=== PATIENT | male | born 1980 ===

== ENCOUNTER 2021-01-05 20:00 | Inpatient (IN) | payer SELFPAY ==
[2021-01-05 20:00] VITALS: BMI 25.1
[2021-01-05 20:52] VITALS: BP 112/70; PULSE 101; RESP 24; TEMP 36.8; O2SAT 96
[2021-01-05 22:00] VITALS: BP 112/70; PULSE 98; RESP 19; TEMP 36.8; O2SAT 96
[2021-01-05] MEDS: ondansetron 4 MG Tablet PO (22:42)
[2021-01-05] MEDS: hyDROXYzine 25 mg Capsule 50 MG PO (22:42)
[2021-01-05] MEDS: trazodone 50 mg Tablet PO (22:42)
--- NOTE | 2021-01-05 22:42 | PC.NURSE ---
Zofran 4mg given for nausea, Trazodone 50mg given for sleep, Visteril 50 mg given for anxiety
--- NOTE | 2021-01-05 22:45 | PC.NURSE ---
4mg Zofran PO given for severe n/V.
[2021-01-06] MEDS: ondansetron 4 MG Tablet PO (02:31)
--- NOTE | 2021-01-06 03:35 | PC.NURSE ---
4mg Zofran given for severe N/V; dry heaves.
[2021-01-06] MEDS: promethazine 25 mg/mL SDV 1 mL IM (05:12)
--- NOTE | 2021-01-06 05:15 | PC.NURSE ---
MD notified of ineffectiveness of Zofran PO. Order for Phenagran 25mg IM obtained. medication given in left deltoid. Will continue to moniter.
--- NOTE | 2021-01-06 05:35 | PC.NURSE ---
40/m SI direct admit from [facility] after suicide attempt to overdose and strangulation efforts via bed sheet. pt is depressed and he is physically ill. pt has vomited and had dry heaves all evening. physician notified, home meds started.
[2021-01-06 05:59] VITALS: BP 139/88; PULSE 103; RESP 24; TEMP 37; O2SAT 98
--- NOTE | 2021-01-06 09:05 | P.HP_ITS ---
Providers/Chief Complaint Admitting Physician: Nils Hinds MD Chief Complaint: depression HPI NPU History of Present Illness Donovan Faulkner is a 40 year old male who presented to the outside hospital [facility] to a Tylenol overdose which required hospitalization and treatment. After his medical clearance he was transferred to [facility] and ultimately admitted to the neuropsychiatric unit for evaluation and treatment of the circumstances surrounding the overdose. He presents today struggling with a likely acute gastritis secondary to the trauma from the overdose and treatment thereof. Struggling with the interview secondary to significant emesis and really feeling physically poor. The report in the 96-hour hold is that the patient reported going down in [place] [employer] [place] and grabbing pills in taking them. When he was confronted by his base remover he continued to say that he just wanted to . In the hospital he reportedly has evaluated in the unit including trying to wrap cord around his neck. Today he presents saying that he must have been suicidal since early suggesting lack of recollection of the minds that he was in when he executed these behaviors both in the hospital and in the grocery store. The assessment in the ICU was that his presentation was consistent with methamphetamine intoxication and his drug screen was positive for methamphetamine. There is also concern that his mental status was reflecting Benadryl intoxication as well as he reportedly took Tylenol PM on top of required and receiving Acetadote he did require Haldol and Ativan to manage his agitation. He presents today as a limited historian secondary to his gastritis and feeling really sick but he does muscular the wherewithal to query whether he can get my Xanax restarted. We discussed restarting medications based on verifiable dosing from reliable sources and that we have thus far not identified Xanax as a medication that is part of his normal regimen. Further more accurate history of addiction and mental health were not obtainable given his current presentation. We will continue to work to obtain more history as he is able to participate more in the interview. Meds NPU Home Medications Medication Instructions Recorded Confirmed Last Taken Type DuoNeb 0.5 - 2.5 mg CONTINUOUS 01/06/21 01/06/21 01/05/21 16:00 History NEBULIZATION Q4-5H PRN Pulmicort 0.25 mg CONTINUOUS INHALATION BID 01/06/21 01/06/21 Unknown History Seroquel 100 mg PO BID 01/06/21 01/06/21 Unknown History Seroquel 200 mg PO BEDTIME 01/06/21 01/06/21 Unknown History doxepin 10 mg PO BEDTIME 01/06/21 01/06/21 Unknown History formoterol fumarate 20 mcg NEBULIZER BID 01/06/21 01/06/21 Unknown History gabapentin 800 mg PO TID 01/06/21 01/06/21 Unknown History levetiracetam [Keppra] 500 mg PO BID 01/06/21 01/06/21 Unknown History paroxetine HCl [Paxil] 20 mg PO DAILY 01/06/21 01/06/21 Unknown History Allergies Allergy/AdvReac Type Severity Reaction Status Date / Time haloperidol [From Haldol] Allergy ALGY-Difficulty Verified 01/05/21 20:51 Swallowing Mental Status Exam MSE Comments: This is a well-nourished well-developed white male in hospital scrubs with limited grooming and eye contact. No abnormal movements except for psychomotor agitation. Semicooperative with exam and moderate to extreme distress. Speech was limited and normal rate and volume. Mood described as shitty, affect congruent. Thought process linear and organized, thought content: Patient denied homicidal ideation but just that he had suicidal ideation, there are no delusions reported or noted, he denied auditory or visual hallucinations. Attention and concentration were limited memory was unreliable but never formally tested. He is alert and oriented times person and place. Insight and judgment are impaired, impulse control is impaired. Vitals/I&O/Wt Last Vital Signs Temp 98.6 F 01/06/21 05:59 Pulse 103 H 01/06/21 05:59 Resp 24 H 01/06/21 05:59 BP 139/88 01/06/21 05:59 Pulse Ox 98 01/06/21 05:59 Weight last 48 hrs Weight 77.111 kg Weight 77.111 kg A&P Assessment and plan (1) Methamphetamine dependence: Status: Acute (2) Tylenol overdose: Status: Acute (3) Suicide attempt by acetaminophen overdose: Status: Acute (4) Altered mental status: Status: Acute Additional A&P Information This is a 40-year-old white male with a long history of addiction with recent suicide attempt by Tylenol overdose as well as active methamphetamine use which likely contributed to the suicide attempt who presents as a fairly poor historian. 1. Continue current medication. 2. Continue every 15 minute checks for safety. 3. Encourage individual, group and milieu therapies. 4. Encourage sober living treatment after discharge at the highest level of care to which he is willing to commit. 5. We will attempt to gain collateral information to get a better sense of how we can help him. Involuntary Hold Information 96 Hour Hold: 96 Hour Involuntary Admission: Yes 96 Hour Hold Ending Date: 01/11/21 96 Hour Hold Ending Time: 20:00 Attestations NPU Medical Necessity Statement*: Inpatient hospitalization is medically necessary and the clinically appropriate intervention at this time. We will monitor medications and make changes as indicated. Patient will be in the hospital for over two midnights. Likely length of stay 3 to 5 days. Coding Level of Care Code Acute Medical Social Worker for Sd Galdamez Diagnoses Methamphetamine dependence F15.20 Tylenol overdose T39.1X1A Suicide attempt by acetaminophen overdose T39.1X2A Altered mental status R41.82
[2021-01-06] MEDS: PARoxetine 20 mg Tablet PO (09:36)
[2021-01-06] MEDS: gabapentin 400 mg Capsule 800 MG PO ×3 (09:36→20:14)
[2021-01-06] MEDS: levETIRAcetam 500 mg Tablet PO ×2 (09:36→17:49)
[2021-01-06] MEDS: quetiapine 100 mg Tablet PO ×2 (09:36→17:49)
--- NOTE | 2021-01-06 12:36 | NPU.GN ---
[facility] Topic:Depression General Mood of Group: Donovan was very ill, he was vomiting when I approached the room. The nurse reported he has been sick since last night. I did not bother him as he was ill.
[2021-01-06 14:00] VITALS: BP 131/75; PULSE 124; RESP 17; TEMP 36.9; O2SAT 95
[2021-01-06] MEDS: polyethylene glycol 3350 Pkt 17 gm PO (17:49)
[2021-01-06 20:11] VITALS: BP 113/66; PULSE 121; RESP 18; TEMP 37.1; O2SAT 96
[2021-01-06] MEDS: doxepin 10 mg Capsule PO (20:14)
[2021-01-06] MEDS: quetiapine 100 mg Tablet 200 MG PO (20:14)
[2021-01-06] MEDS: magnesium hydroxide 30 mL UDC PO (21:09)
[2021-01-07 06:00] VITALS: BP 102/68; PULSE 95; RESP 18; TEMP 36.7; O2SAT 98
[2021-01-07] MEDS: polyethylene glycol 3350 Pkt 17 gm PO ×2 (10:12→22:33)
[2021-01-07] MEDS: PARoxetine 20 mg Tablet PO (10:12)
[2021-01-07] MEDS: quetiapine 100 mg Tablet PO ×2 (10:12→22:34)
[2021-01-07] MEDS: gabapentin 400 mg Capsule 800 MG PO ×3 (10:12→22:33)
[2021-01-07] MEDS: levETIRAcetam 500 mg Tablet PO ×2 (10:12→22:34)
[2021-01-07 14:00] VITALS: BP 102/68; PULSE 95; RESP 18; TEMP 36.7; O2SAT 98
[2021-01-07] MEDS: ondansetron 4 MG Tablet PO (15:42)
--- NOTE | 2021-01-07 15:44 | PC.NURSE ---
PRN ZOFRAN 4 MG GIVEN PO PER PT C/O NAUSEA. WILL CONT TO MONITOR
[2021-01-07 18:19] VITALS: BP 141/92; PULSE 105; RESP 20; TEMP 36.4; O2SAT 99
--- NOTE | 2021-01-07 18:26 | P.PN_ITS ---
Subjective NPU Subjective: Interval history: Patient presents today reporting that he is doing okay but then later started complaining again of abdominal discomfort and emesis. He has initially suggested that he was getting better but later identified that that was not so. We agreed that we would do a hospitalist consult in the morning to see if is anything we can do to ameliorate the likely gastritis he is experiencing. Otherwise he reports that his repeat bout with stomach discomfort was wondering his mental health issues the second place. He does however endorse less suicidal thinking. Mental Status Exam MSE Comments: This is a well-nourished well-developed white male in hospital scrubs with limited grooming and eye contact. No abnormal movements except for psychomotor retardation. Semicooperative with exam in mild to moderate distress. Speech was limited and normal rate and volume. Mood described as okay I guess my stomach is bothering me again, affect congruent. Thought pro cess linear, thought content: Patient denied homicidal ideation but reporting less suicidal ideation, there are no delusions reported or noted, he denied auditory or visual hallucinations. Attention and concentration were limited memory was unreliable but never formally tested. He is alert and oriented times 3. Insight and judgment are limited, impulse control is limited. Vitals/I&O/Wt Last Vital Signs Temp 97.6 F 01/07/21 18:19 Pulse 105 H 01/07/21 18:19 Resp 20 H 01/07/21 18:19 BP 141/92 01/07/21 18:19 Pulse Ox 99 01/07/21 18:19 Weight last 48 hrs Weight 77.111 kg A&P Additional A&P Information (1) Methamphetamine dependence: (2) Tylenol overdose: (3) Suicide attempt by acetaminophen overdose: (4) Altered mental status: This is a 40-year-old white male with a long history of addiction with recent suicide attempt by Tylenol overdose as well as active methamphetamine use which likely contributed to the suicide attempt who presents as a fairly poor historian. 1. Continue current medication. 2. Continue every 15 minute checks for safety. 3. Encourage individual, group and milieu therapies. 4. Encourage sober living treatment after discharge at the highest level of care to which he is willing to commit. 5. We will attempt to gain collateral information to get a better sense of how we can help him. Involuntary Hold Information 96 Hour Hold: 96 Hour Involuntary Admission: Yes 96 Hour Hold Ending Date: 01/11/21 96 Hour Hold Ending Time: 20:00 Attestations NPU Medical Necessity Statement*: Inpatient hospitalization is medically necessary and the clinically appropriate intervention at this time. We will monitor medications and make changes as indicated. Likely length of stay 2-4 days. Coding Level of Care Code Acute Credit Director for Sd Galdamez
[2021-01-07] MEDS: doxepin 10 mg Capsule PO (22:33)
[2021-01-07] MEDS: quetiapine 100 mg Tablet 200 MG PO (22:34)
[2021-01-08 05:19] VITALS: BMI 25.1
[2021-01-08 06:00] VITALS: BP 100/59; PULSE 72; RESP 14; TEMP 36.8
[2021-01-08] MEDS: nicotine 2 mg Gum BUCCAL (07:21)
[2021-01-08 08:03] VITALS: PULSE 103; RESP 17; O2SAT 95
[2021-01-08] MEDS: ipratropium-albuterol 3 mL Neb NEBULIZER (08:03)
[2021-01-08] MEDS: budesonide 0.5 mg/2 mL Neb 0.25 MG INHALATION (08:03)
[2021-01-08 08:08] VITALS: O2SAT 95
[2021-01-08 08:09] VITALS: PULSE 113
[2021-01-08] MEDS: levETIRAcetam 500 mg Tablet PO ×2 (08:14→21:25)
[2021-01-08] MEDS: PARoxetine 20 mg Tablet PO (08:14)
[2021-01-08] MEDS: polyethylene glycol 3350 Pkt 17 gm PO ×2 (08:14→21:25)
[2021-01-08] MEDS: quetiapine 100 mg Tablet PO ×2 (08:14→21:25)
[2021-01-08] MEDS: gabapentin 400 mg Capsule 800 MG PO ×3 (08:14→21:25)
[2021-01-08] MEDS: nicotine 21 mg Patch 1 PATCH TRANSDERMA (09:00)
[2021-01-08 14:05] VITALS: BP 98/61; PULSE 106; RESP 96; TEMP 36.9; O2SAT 96
[2021-01-08] MEDS: hyDROXYzine 25 mg Capsule 50 MG PO (15:12)
[2021-01-08] MEDS: diphenhydrAMINE 50 mg Capsule PO (16:42)
--- NOTE | 2021-01-08 17:06 | PM.NPN ---
Subjective NPU Subjective: Interval history: Donovan presents today finally seen. Though he does report needing to only have soup to avoid awakening the gastritis. He continues to be focused on medications. However much of this focus was goal directed towards returning to [facility]. He reports that he has been successfully in the program for about 2 weeks when he started getting cravings and ultimately responded to that leaving the program. He ended up using which led to him being back here in his current situation endorses that he has contacted them and they said that he is able to return. He was fairly anxious today and a classic tweaking presentation. He initially started today attempting to discharge not appreciating that he was on a hold. Mental Status Exam MSE Comments: This is a well-nourished well-developed white male in hospital scrubs with improving grooming and eye contact. No abnormal movements except for psychomotor agitation. More cooperative with exam in mild distress. Speech was increased rate and normal volume. Mood described as better, affect congruent. Thought process more organized, thought content: Patient denied suicidal or homicidal ideation, there are no delusions reported or noted, he denied auditory or visual hallucinations. Attention and concentration were improving and memory was more reliable but none were formally tested. He is alert and oriented times 3. Insight and judgment are limited, impulse control is impaired. Vitals/I&O/Wt Last Vital Signs Temp 98.1 F 01/08/21 21:51 Pulse 102 H 01/08/21 21:51 Resp 22 H 01/08/21 21:51 BP 98/57 01/08/21 21:51 Pulse Ox 95 01/08/21 21:51 01/08/21 14:59 Intake Total 830 / 830 Balance 830 / 830 Weight last 48 hrs Weight 77.111 kg A&P Additional A&P Information (1) Methamphetamine dependence: (2) Tylenol overdose: (3) Suicide attempt by acetaminophen overdose: (4) Altered mental status: This is a 40-year-old white male with a long history of addiction with recent suicide attempt by Tylenol overdose as well as active methamphetamine use which likely contributed to the suicide attempt who presents as a fairly poor historian. 1. Continue current medication. Allow Benadryl every 6 for withdrawal agitation from methamphetamine 2. Continue every 15 minute checks for safety. 3. Encourage individual, group and milieu therapies. 4. Encourage sober living treatment after discharge at the highest level of care to which he is willing to commit. Patient reports a desire to return to [facility]. Involuntary Hold Information 96 Hour Hold: 96 Hour Involuntary Admission: Yes 96 Hour Hold Ending Date: 01/11/21 96 Hour Hold Ending Time: 20:00 Attestations NPU Medical Necessity Statement*: Inpatient hospitalization is medically necessary and the clinically appropriate intervention at this time. We will monitor medications and make changes as indicated. Likely length of stay 1-3 days. Coding Level of Care Code Acute Pneumatic Riveter for Sd Galdamez
[2021-01-08] MEDS: quetiapine 100 mg Tablet 200 MG PO (21:25)
[2021-01-08] MEDS: doxepin 10 mg Capsule PO (21:26)
[2021-01-08 21:51] VITALS: BP 98/57; PULSE 102; RESP 22; TEMP 36.7; O2SAT 95
[2021-01-09 06:00] VITALS: BP 104/65; PULSE 80; RESP 15; TEMP 36.8; O2SAT 96
[2021-01-09] MEDS: polyethylene glycol 3350 Pkt 17 gm PO ×2 (08:39→21:29)
[2021-01-09] MEDS: gabapentin 400 mg Capsule 800 MG PO ×3 (08:39→21:28)
[2021-01-09] MEDS: quetiapine 100 mg Tablet PO ×2 (08:39→21:28)
[2021-01-09] MEDS: levETIRAcetam 500 mg Tablet PO ×2 (08:39→21:27)
[2021-01-09] MEDS: PARoxetine 20 mg Tablet PO (08:39)
[2021-01-09] MEDS: nicotine 21 mg Patch 1 PATCH TRANSDERMA (10:03)
[2021-01-09] MEDS: diphenhydrAMINE 50 mg Capsule PO (10:49)
--- NOTE | 2021-01-09 10:53 | PC.NURSE ---
PRN BENADRYL 50 MG GIVEN PO PER PT C/O STATED ANXIETY.
[2021-01-09 14:00] VITALS: BP 123/68; PULSE 105; RESP 18; TEMP 36.6; O2SAT 96
--- NOTE | 2021-01-09 16:13 | P.PN_ITS ---
Subjective NPU Subjective: Interval history: Donovan presents today reporting that he has made calls and believes he is found an alternate rehab to [facility]. The main impetus it appears to going to this [facility] versus [facility] is the ability to have a cigarette at this rehab. He reports he still does have a commitment to going on matter what but he would prefer to have this option. He continues to be tweaking, but reports to have some improvement. We discussed the likely discharge in the next 24 hours. Mental Status Exam MSE Comments: This is a well-nourished well-developed white male in hospital scrubs with improving grooming and eye contact. No abnormal movements except for psychomotor agitation and obvious tweaking. More cooperative with exam in acute distress. Speech was increased rate and normal volume. Mood described as better, affect congruent. Thought process more organized, thought content: Patient denied suicidal or homicidal ideation, there are no delusions reported or noted, he denied auditory or visual hallucinations. Attention and concentration were improving and memory was more reliable but none were formally tested. He is alert and oriented times 3. Insight and judgment are limited, impulse control is limited. Vitals/I&O/Wt Last Vital Signs Temp 98.0 F 01/09/21 20:13 Pulse 98 01/09/21 20:13 Resp 26 H 01/09/21 20:13 BP 121/84 01/09/21 20:13 Pulse Ox 96 01/09/21 20:13 A&P Additional A&P Information 1) Methamphetamine dependence: (2) Tylenol overdose: (3) Suicide attempt by acetaminophen overdose: (4) Altered mental status: This is a 40-year-old white male with a long history of addiction with recent suicide attempt by Tylenol overdose as well as active methamphetamine use which likely contributed to the suicide attempt who presents as a fairly poor historian. 1. Continue current medication. 2. Continue every 15 minute checks for safety. 3. Encourage individual, group and milieu therapies. 4. Encourage sober living treatment after discharge at the highest level of care to which he is willing to commit. Patient reports a desire to return to [facility], but he is looking at alternate rehab options. Involuntary Hold Information 96 Hour Hold: 96 Hour Involuntary Admission: Yes 96 Hour Hold Ending Date: 01/11/21 96 Hour Hold Ending Time: 20:00 Attestations NPU Medical Necessity Statement*: Inpatient hospitalization is medically necessary and the clinically appropriate intervention at this time. We will monitor medications and make changes as indicated. Likely length of stay 1-3 days. Coding Level of Care Code Acute Head Silverman for Sd Galdamez
[2021-01-09 20:13] VITALS: BP 121/84; PULSE 98; RESP 26; TEMP 36.7; O2SAT 96
[2021-01-09] MEDS: quetiapine 100 mg Tablet 200 MG PO (21:28)
[2021-01-09] MEDS: doxepin 10 mg Capsule PO (21:28)
[2021-01-10] VITALS (8 sets, daily range): BP systolic 116; BP diastolic 69; PULSE 89–112; RESP 16–20; TEMP 36.5–37.1; O2SAT 95–100
[2021-01-10] MEDS: budesonide 0.5 mg/2 mL Neb 0.25 MG INHALATION ×2 (07:39→21:02)
[2021-01-10] MEDS: ipratropium-albuterol 3 mL Neb NEBULIZER ×3 (07:40→21:02)
[2021-01-10] MEDS: gabapentin 400 mg Capsule 800 MG PO ×3 (08:54→20:33)
[2021-01-10] MEDS: levETIRAcetam 500 mg Tablet PO ×2 (08:54→20:33)
[2021-01-10] MEDS: PARoxetine 20 mg Tablet PO (08:54)
[2021-01-10] MEDS: quetiapine 100 mg Tablet PO ×2 (08:54→20:33)
[2021-01-10] MEDS: nicotine 21 mg Patch 1 PATCH TRANSDERMA (08:54)
--- NOTE | 2021-01-10 12:03 | NPU.GN ---
[facility] Topic: Depression General Mood of Group: Donovan did not attend group today. He was not interested.
--- NOTE | 2021-01-10 12:05 | NPU.GN ---
[facility] Topic: Depression General Mood of Group Did not attend group today
--- NOTE | 2021-01-10 13:38 | P.PN_ITS ---
Subjective NPU Subjective: Interval history: Mother presents today reporting that he is doing better and wanting to leave. He has a commitment complete remission and comes in the morning and can stay there until the first. He continues to lobby to be discharged because he did not understand their policy about when he have to get there. Expressed concerns about his tweaking and craving to use but he endorsed a commitment to continuing back to rehab. Mental Status Exam MSE Comments: This is a well-nourished well-developed white male in hospital scrubs with improving grooming and eye contact. No abnormal movements except for psychomotor agitation and obvious tweaking. More cooperative with exam in no acute distress. Speech was more normal rate and normal volume. Mood described as better, affect congruent. Thought process more organized, thought content: Patient denied suicidal or homicidal ideation, there are no delusions reported or noted, he denied auditory or visual hallucinations. Attention and concentration were improving and memory was more reliable but none were formally tested. He is alert and oriented times 3. Insight and judgment are limited, impulse control is limited. Vitals/I&O/Wt Last Vital Signs Temp 97.7 F 01/10/21 06:00 Pulse 112 H 01/10/21 11:27 Resp 17 01/10/21 11:22 BP 116/69 01/10/21 06:00 Pulse Ox 98 01/10/21 11:22 A&P Additional A&P Information 1) Methamphetamine dependence: (2) Tylenol overdose: (3) Suicide attempt by acetaminophen overdose: (4) Altered mental status: This is a 40-year-old white male with a long history of addiction with recent suicide attempt by Tylenol overdose as well as active methamphetamine use which likely contributed to the suicide attempt who presents as a fairly poor historian. 1. Continue current medication. 2. Continue every 15 minute checks for safety. 3. Encourage individual, group and milieu therapies. 4. Encourage sober living treatment after discharge at the highest level of care to which he is willing to commit. Plan for discharge to [facility] [place] in the morning. Involuntary Hold Information 96 Hour Hold: 96 Hour Involuntary Admission: Yes 96 Hour Hold Ending Date: 01/11/21 96 Hour Hold Ending Time: 20:00 Attestations NPU Medical Necessity Statement*: Inpatient hospitalization is medically necessary and the clinically appropriate intervention at this time. We will monitor medications and make changes as indicated. Likely length of stay 1-2 days. Coding Level of Care Code Acute [employer] for Sd Galdamez
[2021-01-10] MEDS: diphenhydrAMINE 50 mg Capsule PO (13:42)
[2021-01-10] MEDS: quetiapine 100 mg Tablet 200 MG PO (20:32)
[2021-01-10] MEDS: OLANZapine 5 mg ODT PO (20:32)
[2021-01-10] MEDS: nicotine 2 mg Gum BUCCAL (20:33)
[2021-01-10] MEDS: doxepin 10 mg Capsule PO (20:33)
[2021-01-10] MEDS: ondansetron 4 MG Tablet PO (20:33)
--- NOTE | 2021-01-10 20:35 | PC.NURSE ---
pt noted to be very agitated, yelling I'm mad as hell and i want a shot of Zyprexa, and i want it now! pt advised that the doctor has ordered po Zyprexa for him as an as needed for increased anxiety med. that med nurse can give that to him, pt agreed. when pt was asked why he was mad, pt stated, i don't know, I'm just mad! pt also c/o upset stomach and needed a cigarette. Nicorette 2mg gum for cigarette craving, Zofran 4mg po for stomach upset, and Zyprexa 5mg po for increased anxiety was given with HS meds.
--- NOTE | 2021-01-10 20:35 | PC.NURSE ---
Behavior outburst pt is anxious, destroyed his room by throwing papers around, trash in the floor, and became increasingly agitated. Pt states, they are going to send me to a place that I can not afford. I want to go to [place] [facility] or to a place that I can succeed. If I go to this place without any skills, i will be homeless again. Pt states, I need zyprexa 10mg twice a day.That is what I need, no one listens. Pt is tearful and anxious regarding his discharge.
--- NOTE | 2021-01-10 22:00 | PC.NURSE ---
pt resting quietly in his bed, with both eyes closed.
--- NOTE | 2021-01-10 22:16 | PC.NURSE ---
Patient was agitated and yelling at staff so we did not do vitals on him
[2021-01-11 06:00] VITALS: RESP 18
[2021-01-11] MEDS: OLANZapine 5 mg ODT PO (06:53)
--- NOTE | 2021-01-11 07:39 | PM.NDC ---
Diagnoses at Discharge Discharge Diagnosis (1) Methamphetamine dependence: Status: Acute (2) Tylenol overdose: Status: Acute (3) Suicide attempt by acetaminophen overdose: Status: Acute (4) Altered mental status: Status: Resolved Reason for Visit Reason for Visit: depression Brief History: History of Present Illness Donovan Faulkner is a 40 year old male who presented to the outside hospital secondary to a Tylenol overdose which required hospitalization and treatment. After his medical clearance he was transferred to [facility] and ultimately admitted to the neuropsychiatric unit for evaluation and treatment of the circumstances surrounding the overdose. He presents today struggling with a likely acute gastritis secondary to the trauma from the overdose and treatment thereof. Struggling with the interview secondary to significant emesis and really feeling physically poor. The report in the 96-hour hold is that the patient reported going [place] and grabbing pills in taking them. When he was confronted by his architectural administrative assistant he continued to say that he just wanted to . In the hospital he reportedly has evaluated in the unit including trying to wrap cord around his neck. Today he presents saying that he must have been suicidal since early suggesting lack of recollection of the minds that he was in when he executed these behaviors both in the hospital and in the grocery store. The assessment in the ICU was that his presentation was consistent with methamphetamine intoxication and his drug screen was positive for methamphetamine. There is also concern that his mental status was reflecting Benadryl intoxication as well as he reportedly took Tylenol PM on top of required and receiving Acetadote he did require Haldol and Ativan to manage his agitation. He presents today as a limited historian secondary to his gastritis and feeling really sick but he does muscular the wherewithal to query whether he can get my Xanax restarted. We discussed restarting medications based on verifiable dosing from reliable sources and that we have thus far not identified Xanax as a medication that is part of his normal regimen. Further more accurate history of addiction and mental health were not obtainable given his current presentation. We will continue to work to obtain more history as he is able to participate more in the interview. Hospital Course Hospital Course He very slowly acclimated to the individual, group and milieu therapies provided. He was clearly struggling with methamphetamine withdrawal. We were able to restart medications and he stabilized. He is with much movement. We will get him reconnected to inpatient drug and alcohol services. He was able to contract for safety prior to discharge. At outside hospital, patient had routine laboratory studies which were within normal limits except for few outliers. Additionally there was a general medical evaluation which was also within normal limits and revealed no new acute processes. Discharge Summary: At the time of discharge, he denied psychosis or lethality. Mood and anxiety were well managed. Patient endorsed a plan to avoid all drugs of abuse and follow-up with the aftercare recommendations of the treatment team. Patient was evaluated and deemed to be absent credible lethality, and had achieved the maximum benefit from an inpatient hospitalization, so was discharged. Involuntary Hold Information 96 Hour Hold: 96 Hour Involuntary Admission: Yes 96 Hour Hold Ending Date: 01/11/21 96 Hour Hold Ending Time: 20:00 Mental Status Exam MSE Comments: This is a well-nourished well-developed white male in hospital scrubs with improving grooming and eye contact. No abnormal movements except for improving with psychomotor agitation and less tweaking. More cooperative with exam in no acute distress. Speech was more normal rate and normal volume. Mood described as better, affect congruent. Thought process more organized, thought content: Patient denied suicidal or homicidal ideation, there are no delusions reported or noted, he denied auditory or visual hallucinations. Attention and concentration were improving and memory was more reliable but none were formally tested. He is alert and oriented times 3. Insight and judgment are improving, impulse control is improving. Discharge Data Vitals: Last Vital Signs Temp 98.7 F 01/10/21 14:00 Pulse 89 01/10/21 21:04 Resp 18 01/11/21 06:00 BP 116/69 01/10/21 06:00 Pulse Ox 100 01/10/21 21:04 Discharge Plan Discharge Patient Disposition: Home Condition: Stable Prescriptions: Continued DuoNeb inhaler 0.5 - 2.5 mg continuous nebulization Q4-5H PRN (Reason: Shortness Of Breath) RF: 0 formoterol fumarate solution 20 mcg nebulizer BID RF: 0 Keppra 500 mg Tablet 500 mg PO BID 30 Days Qty: 60 RF: 1 Paxil 20 mg Tablet 20 mg PO DAILY 30 Days Qty: 30 RF: 1 Pulmicort suspension 0.25 mg continuous inhalation BID 30 Days Qty: 1 RF: 1 Seroquel tablet 200 mg PO BEDTIME 30 Days Qty: 30 RF: 1 Seroquel tablet 100 mg PO BID 30 Days Qty: 60 RF: 1 doxepin capsule 10 mg PO BEDTIME 30 Days Qty: 30 RF: 1 gabapentin tablet 800 mg PO TID 30 Days Qty: 90 RF: 1 Discharge Orders: Discharge Order (Routine); Ordered 01/11/21 Ordered By: Roshan Zapien Discharge Diet: Regular Discharge Activity: Resume usual activity Patient Instructions: Diphenhydramine (By mouth), Methamphetamine (By mouth), Opioid Safety Discharge Attestations NPU Time Spent in Discharge Care*: less than 30 min Specific Discharge Activities: Specific discharge activities: educating patient, discussing with case finisher/social workers/dc planners, documenting/other paperwork and evaluating patient/reviewing data Coding Level of Care Code Acute Chg DC note Diagnoses Methamphetamine dependence F15.20 Tylenol overdose T39.1X1A Suicide attempt by acetaminophen overdose T39.1X2A Altered mental status R41.82
[2021-01-11 08:17] VITALS: BP 136/84; PULSE 72; RESP 18; TEMP 36.9; O2SAT 98
[2021-01-11] MEDS: PARoxetine 20 mg Tablet PO (09:00)
[2021-01-11] MEDS: quetiapine 100 mg Tablet PO (09:00)
[2021-01-11] MEDS: levETIRAcetam 500 mg Tablet PO (09:00)
[2021-01-11] MEDS: gabapentin 400 mg Capsule 800 MG PO (09:00)
== END 2021-01-11 09:19 | disposition home or self-care (01) | DRG 918 ==
PROVIDERS: Admitting Provider Psychiatry & Neurology Child & Adolescent Psychiatry; Visit Provider Psychiatry & Neurology Psychiatry
DX: T39.1X1A Poisoning by 4-Aminophenol derivatives, accidental (unintentional), initial encounter (principal); F15.229 Other stimulant dependence with intoxication, unspecified; Y92.9 Unspecified place or not applicable; K29.00 Acute gastritis without bleeding; T39.1X2A Poisoning by 4-Aminophenol derivatives, intentional self-harm, initial encounter
CPT/HCPCS: 94640; 94664; 96372; J2550; J7626; Q0162; Q0163